=== PATIENT | female | born 1990 | race Caucasian/White ===

== ENCOUNTER 2022-03-09 08:04 | Emergency (ER) | payer BC ==
[2022-03-09 08:27] VITALS: BP 112/75
[2022-03-09] MEDS ORDERED: Zofran 4 MG/2 ML VIAL IV ONE (08:35)
[2022-03-09] MEDS ORDERED: TORAdol 30 mg Injection IV ONE (08:35)
[2022-03-09] MEDS ORDERED: Sodium Chloride 0.9% 1000 ML 1,000 ML IV STA (08:35)
--- NOTE | 2022-03-09 08:38 | ERPHSYRPT ---
- History of Present Illness Time Seen by Provider: 03/09/22 08:09 Historian: patient Exam Limitations: no limitations Patient Subjective Stated Complaint: Abdominal pain all across entire lower abdomen and into right lower back. Pain intermittent for a few months but has increased since yesterday. States no pain when sitting still but has pain when up ambulating. Triage Nursing Assessment: Patient ambulated back to ED hunched over gaurding abdomen. She is alert and oriented. No SOB. Abdomen soft. Physician History: 32 years old female with history of diabetes mellitus on Victoza presented in the ER with chief complaint of pain across the lower abdomen with some radiation to the back especially on the right side, moderate to severe sharp, aggravated with activity and better with resting. Patient report has been going on for the last couple of months but for last 2 to 3 days its been getting really unbearabl e and has associated nausea and vomited times once yesterday. Denies any urinary complaints. No fever or chills reported. Timing/Duration: week(s), intermittent, worse Activities at Onset: activity Quality: sharpness Abdominal Pain Onset Location: RLQ, LLQ, periumbilical Pain Radiation: back Severity of Pain-Max: severe Severity of Pain-Current: moderate Modifying Factors: Improves With: rest. Worsens With: movement Associated Symptoms: back, nausea, vomiting, No chest pain, No shortness of breath Allergies/Adverse Reactions: metformin [From Glucophage] Allergy (Verified 03/09/22 08:26) Home Medications: Albuterol Sulfate [Albuterol Sulfate Hfa] 2 puff PO Q4-6HPRN PRN 03/09/22 [History] Liraglutide [Victoza 2-Flakito] 1.2 mg SQ DAILY 03/09/22 [History] Hx Tetanus, Diphtheria Vaccination/Date Given: Yes Hx Influenza Vaccination/Date Given: Yes Hx Pneumococcal Vaccination/Date Given: No Immunizations Up to Date: Yes Travel Risk - International Travel Have you traveled outside of the country in past 3 weeks: No - Coronavirus Screening Are you exhibiting any of the following symptoms?: No Close contact with a COVID-19 positive Pt in past 14-21 Days: No - Vaccine Status Have you recieved a Covid-19 vaccination: Yes Heel Sander: fluid Operations - Vaccination Dates Date of 2cond Vaccination (if applicable): 2020 - Review of Systems Constitutional: No Symptoms Eyes: No Symptoms Ears, Nose, & Throat: No Symptoms Respiratory: No Symptoms Cardiac: No Symptoms Abdominal/Gastrointestinal: Abdominal Pain, Nausea, Vomiting Genitourinary Symptoms: No Symptoms Musculoskeletal: Back Pain Skin: No Symptoms Neurological: No Symptoms Psychological: No Symptoms Endocrine: No Symptoms Hematologic/Lymphatic: No Symptoms - Past Medical History Pertinent Past Medical History: Yes Neurological History: Migraines ENT History: No Pertinent History Cardiac History: No Pertinent History Respiratory History: Asthma, Sleep Apnea Endocrine Medical History: Diabetes Type II Musculoskeletal History: No Pertinent History GI Medical History: Gallbladder Disease History: Other Psycho-Social History: Anxiety, Depression Female Reproductive Disorders: No Pertinent History Other Medical History: KIDNEY STONES - Past Surgical History Past Surgical History: Yes Neuro Surgical History: No Pertinent History Cardiac: No Pertinent History Respiratory: No Pertinent History Gastrointestinal: Appendectomy, Cholecystectomy Genitourinary: Other Musculoskeletal: No Pertinent History Female Surgical History: No Pertinent History Other Surgical History: KIDNEY STONE REMOVED, Left ovary and tube removed, w isdom teeth removed - Social History Smoking Status: Never smoker Exposure to second hand smoke: Yes ([id number]) Drug Use: none Patient Lives Alone: No - Female History Hx Last Menstrual Period: Irregular Hx Now: No ( Control Implant) - Nursing Vital Signs Nursing Vital Signs: Initial Vital Signs Temperature 97.9 F 03/09/22 08:17 Pulse Rate 80 03/09/22 08:17 Respiratory Rate 18 03/09/22 08:17 Blood Pressure 112/75 03/09/22 08:17 O2 Sat by Pulse Oximetry 98 03/09/22 08:17 Pain Scale Pain Intensity 6 - Physical Exam General Appearance: no apparent distress, alert Eye Exam: PERRL/EOMI Ears, Nose, Throat Exam: normal ENT inspection, TMs normal, pharynx normal, moist mucous membranes Neck Exam: normal inspection, full range of motion Respiratory Exam: normal breath sounds, lungs clear Cardiovascular Exam: regular rate/rhythm, normal heart sounds Gastrointestinal/Abdomen Exam: soft, normal bowel sounds, tenderness (Generalized tenderness lower abdomen and periumbilical area without guarding or rebound tenderness.) Back Exam: normal inspection, normal range of motion, No CVA tenderness Extremity Exam: normal inspection, normal range of motion Neurologic Exam: alert, oriented x 3, cooperative Skin Exam: normal color SpO2 Interpretation: normal SpO2: 98 O2 Delivery: Room Air Ordered Tests: Active Orders 24 hr Category Date Time Status IV Insertion STAT Care 03/09/22 08:35 Active NPO (ED) STAT Care 03/09/22 08:35 Active ABDOMEN AND PELVIS W/0 CONTRAS [CT] Stat Exams 03/09/22 08:35 Completed CBC W DIFF Stat Lab 03/09/22 08:38 Completed CMP Stat Lab 03/09/22 08:38 Completed CULTURE,URINE Stat Lab 03/09/22 08:38 Received HCG,QUALITATIVE URINE Stat Lab 03/09/22 08:38 Completed LIPASE Stat Lab 03/09/22 08:38 Completed UA W/RFX CULTURE Stat Lab 03/09/22 08:38 Completed Medication Summary Discontinued Medications Generic Name Dose Route Start Last Admin Trade Name Ana Cristina PRN Reason Stop Dose Admin Sodium Chloride 1,000 mls @ 999 mls/hr 03/09/22 08:35 03/09/22 09:44 Sodium Chloride 0.9% 1000 Ml IV 03/09/22 09:35 Infused .Q1H1M STA Infusion Sodium Chloride Confirm 03/09/22 08:39 Sodium Chloride 0.9% 1000 Ml Administered 03/09/22 08:40 Dose 1,000 mls @ ud .ROUTE .STK-MED ONE Ketorolac Tromethamine 30 mg 03/09/22 08:35 03/09/22 08:40 Ketorolac Tromethamine 30 Mg/Ml Inj IV 03/09/22 08:36 30 mg STAT ONE Administration Ketorolac Tromethamine Confirm 03/09/22 08:39 Ketorolac Tromethamine 30 Mg/Ml Inj Administered 03/09/22 08:40 Dose 30 mg .ROUTE .STK-MED ONE Ondansetron HCl 4 mg 03/09/22 08:35 03/09/22 08:40 Ondansetron Hcl 4 Mg/2 Ml Vial IV 03/09/22 08:36 4 mg STAT ONE Administration Ondansetron HCl Confirm 03/09/22 08:39 Ondansetron Hcl 4 Mg/2 Ml Vial Administered 03/09/22 08:40 Dose 4 mg .ROUTE .STK-MED ONE Lab/Rad Data: Laboratory Result Diagrams 03/09/22 08:38 03/09/22 08:38 Laboratory Results 03/09/22 03/09/22 03/09/22 Range/Units 08:38 08:38 08:38 WBC 6.2 (4.0-10.5) x10^3/uL RBC 4.98 (4.1-5.4) x10^6/uL Hgb 14.2 (12.0-16.0) g/dL Hct 44.3 (35-47) % MCV 89.0 (78-100) fL MCH 28.5 (26-32) pg MCHC 32.1 (32-36) g/dL RDW 13.0 (11.5-14.0) % Plt Count 277 (150-450) x10^3/uL MPV 11.1 H (7.5-11.0) fL Gran % 60.7 (36.0-66.0) % Immature Gran % (Auto) 0.2 (0.00-0.4) % Nucleat RBC Rel Count 0.0 (0.00-0.1) % Eos # (Auto) 0.37 (0-0.5) x10^3/uL Immature Gran # (Auto) 0.01 (0.00-0.03) x10^3u/L Absolute Lymphs (auto) 1.30 (1.0-4.6) x10^3/uL Absolute Monos (auto) 0.66 (0.0-1.3) x10^3/uL Absolute Nucleated RBC 0.00 (0.00-0.01) x10^3u/L Lymphocytes % 21.1 L (24.0-44.0) % Monocytes % 10.7 (0.0-12.0) % Eosinophils % 6.0 H (0.00-5.0) % Basophils % 1.3 (0.0-0.4) % Absolute Granulocytes 3.73 (1.4-6.9) x10^3/uL Basophils # 0.08 (0-0.4) x10^3/uL Sodium 139 (137-145) mmol/L Potassium 4.3 (3.5-5.1) mmol/L Chloride 106 (98-107) mmol/L Carbon Dioxide 24 (22-30) mmol/L Anion Gap 13.0 (5-15) MEQ/L BUN 7 (7-17) mg/dL Creatinine 0.67 (0.52-1.04) mg/dL Estimated GFR > 60.0 ML/MIN Glucose 99 (74-106) mg/dL Calcium 9.4 (8.4-10.2) mg/dL Total Bilirubin 1.40 H (0.2-1.3) mg/dL AST 28 (14-36) U/L ALT 25 (0-35) U/L Alkaline Phosphatase 75 (38-126) U/L Serum Total Protein 7.7 (6.3-8.2) g/dL Albumin 4.8 (3.5-5.0) g/dL Lipase 107 (23-300) U/L Urinalys Dipstick Clnc MAIN LAB Urine Color YELLOW (YELLOW) Urine Appearance CLEAR (CLEAR) Urine pH 6.5 (5-6) Ur Specific Callahan 1.025 (1.005-1.025) POC Urine Protein Conf NEGATIVE (Negative) Urine Ketones NEGATIVE (NEGATIVE) Urine Nitrite NEGATIVE (NEGATIVE) Urine Bilirubin NEGATIVE (NEGATIVE) Urine Urobilinogen 0.2 (0-1) mg/dL Urine Leukocytes SMALL A (NEGATIVE) Urine WBC (Auto) 3-5 A (0-5) /HPF Urine RBC (Auto) 0-2 (0-2) /HPF U Epithel Cells (Auto) RARE (FEW) /HPF Urine Bacteria (Auto) RARE (NEGATIVE) /HPF Urine RBC NEGATIVE (0-5) Jeffery/ul Urine Mucus (Auto) SLIGHT A (NEGATIVE) /HPF Ur Culture Indicated? YES Urine Glucose NEGATIVE (NEGATIVE) mg/dL Urine HCG, Qual (Negative) 03/09/22 Range/Units 08:38 WBC (4.0-10.5) x10^3/uL RBC (4.1-5.4) x10^6/uL Hgb (12.0-16.0) g/dL Hct (35-47) % MCV (78-100) fL MCH (26-32) pg MCHC (32-36) g/dL RDW (11.5-14.0) % Plt Count (150-450) x10^3/uL MPV (7.5-11.0) fL Gran % (36.0-66.0) % Immature Gran % (Auto) (0.00-0.4) % Nucleat RBC Rel Count (0.00-0.1) % Eos # (Auto) (0-0.5) x10^3/uL Immature Gran # (Auto) (0.00-0.03) x10^3u/L Absolute Lymphs (auto) (1.0-4.6) x10^3/uL Absolute Monos (auto) (0.0-1.3) x10^3/uL Absolute Nucleated RBC (0.00-0.01) x10^3u/L Lymphocytes % (24.0-44.0) % Monocytes % (0.0-12.0) % Eosinophils % (0.00-5.0) % Basophils % (0.0-0.4) % Absolute Granulocytes (1.4-6.9) x10^3/uL Basophils # (0-0.4) x10^3/uL Sodium (137-145) mmol/L Potassium (3.5-5.1) mmol/L Chloride (98-107) mmol/L Carbon Dioxide (22-30) mmol/L Anion Gap (5-15) MEQ/L BUN (7-17) mg/dL Creatinine (0.52-1.04) mg/dL Estimated GFR ML/MIN Glucose (74-106) mg/dL Calcium (8.4-10.2) mg/dL Total Bilirubin (0.2-1.3) mg/dL AST (14-36) U/L ALT (0-35) U/L Alkaline Phosphatase (38-126) U/L Serum Total Protein (6.3-8.2) g/dL Albumin (3.5-5.0) g/dL Lipase (23-300) U/L Urinalys Dipstick Clnc Urine Color (YELLOW) Urine Appearance (CLEAR) Urine pH (5-6) Ur Specific Callahan (1.005-1.025) POC Urine Protein Conf (Negative) Urine Ketones (NEGATIVE) Urine Nitrite (NEGATIVE) Urine Bilirubin (NEGATIVE) Urine Urobilinogen (0-1) mg/dL Urine Leukocytes (NEGATIVE) Urine WBC (Auto) (0-5) /HPF Urine RBC (Auto) (0-2) /HPF U Epithel Cells (Auto) (FEW) /HPF Urine Bacteria (Auto) (NEGATIVE) /HPF Urine RBC (0-5) Jeffery/ul Urine Mucus (Auto) (NEGATIVE) /HPF Ur Culture Indicated? Urine Glucose (NEGATIVE) mg/dL Urine HCG, Qual NEGATIVE (Negative) - Progress Progress: improved Progress Note: 03/09/22 10:59 32 years old is evaluated for abdominal pain. She is given fluids and symptomatic treatment, on reevaluation feeling much better. No peritoneal signs. Has normal white count, grossly unremarkable chemistries except for a total bili of 1.4. CT abdomen pelvis without contrast grossly negative for any acute pathology in the abdomen pelvis but does have some left-sided airspace disease. Patient later on did report having some cough. I will put her on Z- Flakito and have her outpatient follow-up with her primary care. Her pain in the back could be chronic back pain exacerbation. Recommended symptomatic treatment and outpatient follow-up. Discussed signs symptoms of worsening needing return to ER which she seems understanding. Counseled pt/family regarding: lab results, diagnosis, need for follow-up, rad results - Departure Departure Disposition: Home Clinical Impression: Pneumonia, Abdominal pain Condition: Stable Critical Care Time: No Referrals: CARMEN SMITH [Primary Care Provider] - Follow Up with PCP/3 days Instructions: Pneumonia, Adult (DC), Severe Abdominal Pain, Adult (DC) Additional Instructions: Follow-up with primary care for reevaluation. Take Tylenol/ibuprofen as needed. Deep breathing exercises. Return to ER for worsening abdominal pain or if having difficulty breathing, fever chills etc. Prescriptions: Azithromycin 250 mg [Zithromax 250 MG TABLET] 250 mg PO ZPACK #6 tablet
[2022-03-09] MEDS ORDERED: Sodium Chloride 0.9% 1000 ML 1,000 ML ONE (08:39)
[2022-03-09] MEDS ORDERED: Zofran 4 MG/2 ML VIAL ONE (08:39)
[2022-03-09] MEDS ORDERED: TORAdol 30 mg Injection ONE (08:39)
[2022-03-09 08:47] LABS: Absolute Neutrophil Ct (ANC) 3.73 x10^3/uL (1.4-6.9); Basophil (Absolute #) 0.08 x10^3/uL (0-0.4); Eosinophil (Absolute #) 0.37 x10^3/uL (0-0.5); Hematocrit 44.3 % (35-47); Hemoglobin 14.2 g/dL (12.0-16.0); Lymphocytes % 21.1 % (24.0-44.0); Mean Corpuscular Hemoglobin 28.5 pg (26-32); Mean Corpuscular Hgb Concent. 32.1 g/dL (32-36); Mean Platelet Volume 11.1 fL (7.5-11.0); Monocyte (Absolute #) 0.66 x10^3/uL (0.0-1.3); Monocytes % 10.7 % (0.0-12.0); Neutrophil % 60.7 % (36.0-66.0); Platelet Count 277 x10^3/uL (150-450); Red Blood Count 4.98 x10^6/uL (4.1-5.4); White Blood Count 6.2 x10^3/uL (4.0-10.5)
[2022-03-09 08:52] LABS: Appearance CLEAR (CLEAR); Bilirubin NEGATIVE (NEGATIVE); Dipstick done @ ? MAIN LAB; Glucose NEGATIVE (NEGATIVE); Ketones NEGATIVE (NEGATIVE); Nitrite NEGATIVE (NEGATIVE); Ph 6.5 (5-6); Protein,Urine Dip NEGATIVE (Negative); RBC NEGATIVE Ery/ul (0-5); Specific Gravity 1.025 (1.005-1.025); Urobilinogen 0.2 mg/dL (0-1)
[2022-03-09 08:53] LABS: Bacteria RARE /HPF (NEGATIVE); Epithelial Cells RARE /HPF (FEW); Mucus SLIGHT /HPF (NEGATIVE); RBC 0-2 /HPF (0-2)
[2022-03-09 08:54] LABS: Urine Cultured Indicated? YES
[2022-03-09 08:57] LABS: ALBUMIN 4.8 g/dL (3.5-5.0); ALKALINE PHOSPHATASE 75 U/L (38-126); BLOOD UREA NITROGEN 7 mg/dL (7-17); CHLORIDE 106 mmol/L (98-107); Calcium 9.4 mg/dL (8.4-10.2); Carbon Dioxide 24 mmol/L (22-30); Creatinine 1 0.67 mg/dL (0.52-1.04); EST GLOMERULAR FILTRATION RATE > 60.0 ML/MIN; Glucose 99 mg/dL (74-106); LIPASE 107 U/L (23-300); Potassium 4.3 mmol/L (3.5-5.1); SGOT/AST 28 U/L (14-36); SGPT/ALT 25 U/L (0-35); SODIUM 139 mmol/L (137-145); Total Protein 7.7 g/dL (6.3-8.2)
--- NOTE | 2022-03-09 09:34 | XRAY ---
Indication: Abdomen pain, nausea, and vomiting 2 months. Multiple contiguous axial images obtained through the abdomen and pelvis without contrast. Comparison: None Lung bases demonstrates patchy posterior left lower lobe airspace disease with tiny effusion. Incidental small left base calcified granuloma. Heart not enlarged. Moderate-sized hiatal hernia with partial intrathoracic stomach. Noncontrasted stomach and bowel loops appear nonobstructed. Previous appendectomy, cholecystectomy, and left oophorectomy reported. No free fluid/air. Remaining liver, pancreas, spleen, adrenal glands, kidneys, ureters, bladder, uterus, and aorta are unremarkable for noncontrast exam. Osseous structures intact. No ventral or inguinal hernias. Impression: 1. Left lower lobe airspace disease with tiny effusion. 2. Incidental hiatal hernia with partial intrathoracic stomach and left lung base calcified granuloma. 3. Remaining CT abdomen/pelvis without contrast exam is negative.
[2022-03-09 11:01] VITALS: PULSE 83
[2022-03-09 11:02] VITALS: O2SAT 98
== END 2022-03-09 11:19 | disposition home or self-care (01) ==
LOC: ED 08:04
DX: J18.9 Pneumonia, unspecified organism (principal); R10.31 Right lower quadrant pain; R10.32 Left lower quadrant pain; R05.9 Cough, unspecified; R11.2 Nausea with vomiting, unspecified; E11.9 Type 2 diabetes mellitus without complications; Z79.85 Long-term (current) use of injectable non-insulin antidiabetic drugs; Z79.899 Other long term (current) drug therapy
CPT/HCPCS: 36000; 36415; 74176; 80053; 81015; 81025; 83690; 85025; 87086; 96374; 96375; 99284; J1885; J2405

== ENCOUNTER 2023-02-07 12:33 | Emergency (ER) | payer BC ==
--- NOTE | 2023-02-07 12:40 | ERPHSYRPT ---
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 Patient has had an appendectomy, cholecystectomy and left salpingo- oophorectomy. She had left-sided abdominal pain in February 2022 which was negative for any acute process. In July 2022, patient underwent a Marty fundoplication by Drs. Small/Anabelle robotically per her report. Patient has no known coronary artery disease. She does have history of diabetes, COPD, migraine headache, asthma, sleep apnea and anxiety/depression issues. Timing/Duration: today, sudden, worse Activities at Onset: none Quality: tightness, other (Squeezing) Abdominal Pain Onset Location: epigastric Pain Radiation: back Severity of Pain-Max: moderate Severity of Pain-Current: moderate Modifying Factors: Improves With: nothing Associated Symptoms: nausea, No chest pain, No diarrhea, No vomiting Previous symptoms: no prior history, no recent treatment Allergies/Adverse Reactions: metformin [From Glucophage] Allergy (Verified 02/07/23 13:03) Home Medications: Albuterol Sulfate [Albuterol Sulfate Hfa] 2 puff PO Q4-6HPRN PRN 03/09/22 [History] Escitalopram Oxalate [Lexapro] 10 mg PO DAILY 02/07/23 [History] Lorazepam 0.5 mg [Ativan 0.5 MG] 0.5 mg PO UD PRN 02/07/23 [History] Hx Tetanus, Diphtheria Vaccination/Date Given: Yes Hx Influenza Vaccination/Date Given: Yes Hx Pneumococcal Vaccination/Date Given: No Travel Risk - International Travel Have you traveled outside of the country in past 3 weeks: No - Coronavirus Screening Are you exhibiting any of the following symptoms?: No Close contact with a COVID-19 positive Pt in past 14-21 Days: No - Vaccine Status Have you recieved a Covid-19 vaccination: Yes Ergonomics Consultant: Soma - Vaccination Dates Date of 2cond Vaccination (if applicable): 2020 - Review of Systems Constitutional: No Symptoms Eyes: No Symptoms Ears, Nose, & Throat: No Symptoms Respiratory: No Symptoms Cardiac: No Symptoms Abdominal/Gastrointestinal: Abdominal Pain, Nausea, No Vomiting, No Diarrhea, No Constipation Genitourinary Symptoms: No Symptoms Musculoskeletal: No Symptoms Skin: No Symptoms Neurological: No Symptoms Psychological: No Symptoms Endocrine: No Symptoms Hematologic/Lymphatic: No Symptoms Immunological/Allergic: No Symptoms All Other Systems: Reviewed and Negative - Past Medical History Pertinent Past Medical History: Yes Neurological History: Migraines ENT History: No Pertinent History Cardiac History: No Pertinent History Respiratory History: Asthma, Sleep Apnea Endocrine Medical History: Diabetes Type II Musculoskeletal History: No Pertinent History GI Medical History: Gallbladder Disease History: Other Psycho-Social History: Anxiety, Depression Female Reproductive Disorders: No Pertinent History Other Medical History: KIDNEY STONES - Past Surgical History Past Surgical History: Yes Neuro Surgical History: No Pertinent History Cardiac: No Pertinent History Respiratory: No Pertinent History Gastrointestinal: Appendectomy, Cholecystectomy Genitourinary: Other Musculoskeletal: No Pertinent History Female Surgical History: No Pertinent History Other Surgical History: KIDNEY STONE REMOVED, Left ovary and tube removed, wisdom teeth removed - Social History Smoking Status: Never smoker Exposure to second hand smoke: Yes ([id number]) Drug Use: none Patient Lives Alone: No - Nursing Vital Signs Nursing Vital Signs: Initial Vital Signs Temperature 98.3 F 02/07/23 12:48 Pulse Rate 84 02/07/23 12:48 Blood Pressure 155/103 02/07/23 12:48 O2 Sat by Pulse Oximetry 100 02/07/23 12:48 Pain Scale Pain Intensity 2 - Physical Exam General Appearance: mild distress, alert, anxiety Eye Exam: PERRL/EOMI, eyes nml inspection Ears, Nose, Throat Exam: normal ENT inspection, moist mucous membranes Neck Exam: normal inspection Respiratory Exam: normal breath sounds, lungs clear, airway intact, No chest tenderness, No respiratory distress Cardiovascular Exam: regular rate/rhythm, normal heart sounds, normal peripheral pulses Gastrointestinal/Abdomen Exam: soft, normal bowel sounds, No tenderness Pelvic Exam: not done Rectal Exam: not done Back Exam: normal inspection, normal range of motion, No CVA tenderness, No vertebral tenderness Extremity Exam: normal inspection, normal range of motion, pelvis stable Neurologic Exam: alert, oriented x 3, cooperative, chemical pumper II-XII nml as tested, normal mood/affect, nml cerebellar function, nml station & gait, sensation nml Skin Exam: normal color, warm, dry Lymphatic Exam: No adenopathy SpO2 Interpretation: normal O2 Delivery: Room Air - Course Nursing assessment & vital signs reviewed: Yes EKG Interpreted by Me: RATE ([id number]), Sinus Rhythm, NORMAL AXIS, NORMAL INTERVALS, NORMAL QRS, Other (No acute ischemic changes on today's twelve-lead EKG) Ordered Tests: Active Orders 24 hr Category Date Time Status EKG-ER Only STAT Care 02/07/23 12:59 Active IV Insertion STAT Care 02/07/23 12:59 Active ABDOMEN AND PELVIS W/0 CONTRAS [CT] Stat Exams 02/07/23 13:00 Completed AMYLASE Stat Lab 02/07/23 13:15 Completed CBC W DIFF Stat Lab 02/07/23 13:15 Completed CMP Stat Lab 02/07/23 13:15 Completed CULTURE,URINE Stat Lab 02/07/23 13:06 Received D-DIMER QUANTITATIVE Stat Lab 02/07/23 13:15 Completed HCG QUALITATIVE, SERUM Stat Lab 02/07/23 13:15 Completed LIPASE Stat Lab 02/07/23 13:15 Completed TROPONIN Q4H Lab 02/07/23 13:15 Completed TROPONIN Q4H Lab 02/07/23 17:15 Ordered TROPONIN Q4H Lab 02/07/23 21:15 Ordered UA W/RFX UR CULTURE Stat Lab 02/07/23 13:06 Completed Medication Summary Generic Name Dose Route Start Last Admin Trade Name Freq PRN Reason Stop Dose Admin Sodium Chloride 1,000 mls @ 100 mls/hr 02/07/23 13:00 02/07/23 13:22 Sodium Chloride 0.9% 1000 Ml IV 03/09/23 12:59 100 mls/hr .Q10H ZULY Administration Discontinued Medications Generic Name Dose Route Start Last Admin Trade Name Freq PRN Reason Stop Dose Admin Hydromorphone HCl 1 mg 02/07/23 12:59 02/07/23 13:22 Hydromorphone 1 Mg/1ml Inj IV 02/07/23 13:00 1 mg STAT ONE Administration Hydromorphone HCl Confirm 02/07/23 13:21 Hydromorphone 1 Mg/1ml Inj Administered 02/07/23 13:22 Dose 1 mg .ROUTE .STK-MED ONE Ceftriaxone Sodium/Dextrose 1 g in 50 mls @ 100 mls/hr 02/07/23 14:01 03/22 14:56 Rocephin 1 Gm-D5w 50 Ml Bag IV 02/07/23 14:30 Infused STAT STA Infusion Ceftriaxone Sodium/Dextrose Confirm 02/07/23 14:05 Rocephin 1 Gm-D5w 50 Ml Bag Administered 02/07/23 14:06 Dose 1 g in 50 mls @ ud IV .STK-MED ONE Ondansetron HCl 4 mg 02/07/23 12:59 02/07/23 13:22 Ondansetron Hcl 4 Mg/2 Ml Vial IV 02/07/23 13:00 4 mg STAT ONE Administration Ondansetron HCl Confirm 02/07/23 13:21 Ondansetron Hcl 4 Mg/2 Ml Vial Administered 02/07/23 13:22 Dose 4 mg .ROUTE .STK-MED ONE Lab/Rad Data: Laboratory Result Diagrams 02/07/23 13:15 02/07/23 13:15 Laboratory Results 02/07/23 02/07/23 02/07/23 Range/Units 13:15 13:15 13:15 WBC (4.0-10.5) x10^3/uL RBC (4.1-5.4) x10^6/uL Hgb (12.0-16.0) g/dL Hct (35-47) % MCV (78-100) fL MCH (26-32) pg MCHC (32-36) g/dL RDW (11.5-14.0) % Plt Count (150-450) x10^3/uL MPV (7.5-11.0) fL Gran % (36.0-66.0) % Immature Gran % (Auto) (0.00-0.4) % Nucleat RBC Rel Count (0.00-0.1) % Eos # (Auto) (0-0.5) x10^3/uL Immature Gran # (Auto) (0.00-0.03) x10^3u/L Absolute Lymphs (auto) (1.0-4.6) x10^3/uL Absolute Monos (auto) (0.0-1.3) x10^3/uL Absolute Nucleated RBC (0.00-0.01) x10^3u/L Lymphocytes % (24.0-44.0) % Monocytes % (0.0-12.0) % Eosinophils % (0.00-5.0) % Basophils % (0.0-0.4) % Absolute Granulocytes (1.4-6.9) x10^3/uL Basophils # (0-0.4) x10^3/uL D-Dimer 0.52 H (0.0-0.50) mg/L Sodium (137-145) mmol/L Potassium (3.5-5.1) mmol/L Chloride (98-107) mmol/L Carbon Dioxide (22-30) mmol/L Anion Gap (5-15) MEQ/L BUN (7-17) mg/dL Creatinine (0.52-1.04) mg/dL Estimated GFR ML/MIN Glucose (74-106) mg/dL Calcium (8.4-10.2) mg/dL Total Bilirubin (0.2-1.3) mg/dL AST (14-36) U/L ALT (0-35) U/L Alkaline Phosphatase (38-126) U/L Troponin I < 0.012 (0.000-0.034) ng/mL Serum Total Protein (6.3-8.2) g/dL Albumin (3.5-5.0) g/dL Amylase (30-110) U/L Lipase (23-300) U/L Serum HCG, Qual NEGATIVE (NEGATIVE) Urine Color (Yellow) Urine Appearance (Clear) Urine pH (4.6-8.0) Ur Specific [place] (1.005-1.030) Urine Protein (Negative) Urine Glucose (UA) (Negative) mg/dL Urine Ketones (Negative) Urine Blood (Negative) Urine Nitrite (Negative) Urine Bilirubin (Negative) Urine Urobilinogen (0.2) mg/dL Ur Leukocyte Esterase (Negative) U Hyaline Cast (Auto) (0-2) /LPF Urine Microscopic RBC (0-5) /HPF Urine Microscopic WBC (0-5) /HPF Ur Epithelial Cells (None Seen) /HPF Urine Bacteria (None Seen) /HPF Urine Culture Reflexed (NO) 02/07/23 02/07/23 02/07/23 Range/Units 13:15 13:15 13:06 WBC 10.4 (4.0-10.5) x10^3/uL RBC 4.47 (4.1-5.4) x10^6/uL Hgb 13.2 (12.0-16.0) g/dL Hct 40.1 (35-47) % MCV 89.7 (78-100) fL MCH 29.5 (26-32) pg MCHC 32.9 (32-36) g/dL RDW 13.4 (11.5-14.0) % Plt Count 224 (150-450) x10^3/uL MPV 10.5 (7.5-11.0) fL Gran % 61.6 (36.0-66.0) % Immature Gran % (Auto) 0.4 (0.00-0.4) % Nucleat RBC Rel Count 0.0 (0.00-0.1) % Eos # (Auto) 0.08 (0-0.5) x10^3/uL Immature Gran # (Auto) 0.04 H (0.00-0.03) x10^3u/L Absolute Lymphs (auto) 3.19 (1.0-4.6) x10^3/uL Absolute Monos (auto) 0.64 (0.0-1.3) x10^3/uL Absolute Nucleated RBC 0.00 (0.00-0.01) x10^3u/L Lymphocytes % 30.6 (24.0-44.0) % Monocytes % 6.1 (0.0-12.0) % Eosinophils % 0.8 (0.00-5.0) % Basophils % 0.5 (0.0-0.4) % Absolute Granulocytes 6.44 (1.4-6.9) x10^3/uL Basophils # 0.05 (0-0.4) x10^3/uL D-Dimer (0.0-0.50) mg/L Sodium 140 (137-145) mmol/L Potassium 3.6 (3.5-5.1) mmol/L Chloride 106 (98-107) mmol/L Carbon Dioxide 23 (22-30) mmol/L Anion Gap 14.9 (5-15) MEQ/L BUN 13 (7-17) mg/dL Creatinine 0.61 (0.52-1.04) mg/dL Estimated GFR > 60.0 ML/MIN Glucose 91 (74-106) mg/dL Calcium 9.1 (8.4-10.2) mg/dL Total Bilirubin 0.60 (0.2-1.3) mg/dL AST 30 (14-36) U/L ALT 27 (0-35) U/L Alkaline Phosphatase 76 (38-126) U/L Troponin I (0.000-0.034) ng/mL Serum Total Protein 7.0 (6.3-8.2) g/dL Albumin 4.4 (3.5-5.0) g/dL Amylase 60 (30-110) U/L Lipase 106 (23-300) U/L Serum HCG, Qual (NEGATIVE) Urine Color Yellow (Yellow) Urine Appearance Cloudy A (Clear) Urine pH 6.5 (4.6-8.0) Ur Specific [place] 1.020 (1.005-1.030) Urine Protein Negative (Negative) Urine Glucose (UA) Negative (Negative) mg/dL Urine Ketones Negative (Negative) Urine Blood Negative (Negative) Urine Nitrite Negative (Negative) Urine Bilirubin Negative (Negative) Urine Urobilinogen 0.2 (0.2) mg/dL Ur Leukocyte Esterase Moderate A (Negative) U Hyaline Cast (Auto) NONE SEEN (0-2) /LPF Urine Microscopic RBC 0-2 (0-5) /HPF Urine Microscopic WBC 6-10 A (0-5) /HPF Ur Epithelial Cells Moderate A (None Seen) /HPF Urine Bacteria Moderate A (None Seen) /HPF Urine Culture Reflexed YES (NO) - Progress Progress: improved, pain not gone completely, re-examined Progress Note: 02/07/23 13:27 This patient's medical issue is 1 of at least moderate complexity. Level compl ex in the work-up performed is based on review of the patient's past medical history, review of the patient's medication list, review of the patient's drug allergy list, history of present is some physical findings on examination. The work-up includes placement of intravenous line, infusion of normal saline solution, infusion of 4 mg intravenous Zofran, infusion of Dilaudid 1 mg intravenously, CBC, CMP, amylase, urinalysis, test, D-dimer, troponin level and twelve-lead EKG. 02/07/23 14:46 I reviewed and interpreted the patient's laboratory data results. Patient does have a significant urinary tract infection. She has a borderline normal D-dimer level. She has no clotting or bleeding disorders. She is active. She has no calf pain or swelling in her bilateral lower extremities. I will discuss with her the results of the laboratory data and discussed with her CT scan of the chest with contrast, its risk benefits and alternatives. I am not convinced that she absolutely has to have this study done but I will give her the option. The CT scan of the abdomen pelvis without contrast shows a 3.5 cm right ovarian cyst and bilateral punctate calculi that are nonobstructing. 02/07/23 14:47 02/07/23 15:34 I reviewed the work-up results including labs and x-ray findings with the patient. The patient is awake alert oriented. She is declining the CT scan of the chest with contrast at this time. She will sign a refusal of test form Counseled pt/family regarding: lab results, diagnosis, rad results Medical Desision Making - Diagnostic Testing Diagnostic test were ordered, analyzed, and reviewed by me: Yes Radiological Interpretation: Reviewed by me, Teleradiologist Report - Risk of complications The pt has a mod risk of morbidity or mortality based on: Need for prescription drug management - Departure Departure Disposition: Home Clinical Impression: Epigastric pain Condition: Stable Critical Care Time: No Referrals: CARMEN SMITH [Primary Care Provider] - Follow up/PCP as directed Additional Instructions: Avoid fatty greasy spicy foods. Avoid carbonated beverages. Drink plenty of clear liquids. Call your surgeon tomorrow, 02/08/2023, and let them know you are here in the emergency department and the symptoms you are having. Follow-up with them in the next 3 to 5 days. Take your other medications as prescribed
[2023-02-07 13:03] VITALS: PULSE 84; TEMP 98.3
[2023-02-07] MEDS ORDERED: Zofran 4 MG/2 ML VIAL ONE (13:21)
[2023-02-07] MEDS ORDERED: Hydromorphone 1 mg/ml Injection ONE (13:21)
[2023-02-07] MEDS ORDERED: Sodium Chloride 0.9% 1000 ML 1,000 ML ONE (13:21)
[2023-02-07] MEDS: Hydromorphone 1 mg/ml Injection IV ONE (13:22)
[2023-02-07] MEDS: Sodium Chloride 0.9% 1000 ML 1,000 ML IV SCH (13:22)
[2023-02-07] MEDS: Zofran 4 MG/2 ML VIAL IV ONE (13:22)
[2023-02-07 13:28] LABS: Absolute Neutrophil Ct (ANC) 6.44 x10^3/uL (1.4-6.9); BASOPHIL % 0.5 % (0.0-0.4); Basophil (Absolute #) 0.05 x10^3/uL (0-0.4); Eosinophil % 0.8 % (0.00-5.0); Eosinophil (Absolute #) 0.08 x10^3/uL (0-0.5); Hematocrit 40.1 % (35-47); Hemoglobin 13.2 g/dL (12.0-16.0); IMMATURE GRAN # 0.04 x10^3u/L (0.00-0.03); IMMATURE GRAN % 0.4 % (0.00-0.4); Lymphocyte (Absolute #) 3.19 x10^3/uL (1.0-4.6); Lymphocytes % 30.6 % (24.0-44.0); Mean Cell Volume 89.7 fL (78-100); Mean Corpuscular Hemoglobin 29.5 pg (26-32); Mean Corpuscular Hgb Concent. 32.9 g/dL (32-36); Mean Platelet Volume 10.5 fL (7.5-11.0); Monocyte (Absolute #) 0.64 x10^3/uL (0.0-1.3); Monocytes % 6.1 % (0.0-12.0); Neutrophil % 61.6 % (36.0-66.0); Platelet Count 224 x10^3/uL (150-450); Red Blood Count 4.47 x10^6/uL (4.1-5.4); Red Cell Distribution Width 13.4 % (11.5-14.0); White Blood Count 10.4 x10^3/uL (4.0-10.5)
[2023-02-07 13:32] LABS: Appearance Cloudy (Clear); Bilirubin Negative (Negative); Blood Negative (Negative); Glucose, Urine Negative (Negative); Ketones Negative (Negative); Leukocyte Esterase Moderate (Negative); Nitrite Negative (Negative); Ph 6.5 (4.6-8.0); Protein,Urine Dip Negative (Negative); Urobilinogen 0.2 mg/dL (0.2)
[2023-02-07 13:57] LABS: Hyaline Casts NONE SEEN /LPF (0-2); RBC 0-2 /HPF (0-5)
[2023-02-07 13:58] LABS: ADD URINE CULTURE? YES (NO); Bacteria Moderate /HPF (None Seen); Epithelial Cells Moderate /HPF (None Seen)
[2023-02-07] MEDS ORDERED: ROCEPHIN 1 Gm-D5w 50 ml Bag** 1 G/50 ML IVPB IV ONE (14:05)
[2023-02-07] MEDS: ROCEPHIN 1 Gm-D5w 50 ml Bag** 1 G/50 ML IVPB IV STA (14:06)
[2023-02-07 14:11] LABS: HCG SERUM TEST NEGATIVE (NEGATIVE)
[2023-02-07 14:15] LABS: ALBUMIN 4.4 g/dL (3.5-5.0); ALKALINE PHOSPHATASE 76 U/L (38-126); AMYLASE 60 U/L (30-110); ANION GAP 14.9 MEQ/L (5-15); BLOOD UREA NITROGEN 13 mg/dL (7-17); CHLORIDE 106 mmol/L (98-107); Calcium 9.1 mg/dL (8.4-10.2); Carbon Dioxide 23 mmol/L (22-30); Creatinine 1 0.61 mg/dL (0.52-1.04); EST GLOMERULAR FILTRATION RATE > 60.0 ML/MIN; Glucose 91 mg/dL (74-106); LIPASE 106 U/L (23-300); Potassium 3.6 mmol/L (3.5-5.1); SGOT/AST 30 U/L (14-36); SGPT/ALT 27 U/L (0-35); SODIUM 140 mmol/L (137-145)
--- NOTE | 2023-02-07 14:39 | XRAY ---
Indication: Epigastric pain. Status post Marty fundoplication July 2022. Multiple contiguous axial images obtained through the abdomen and pelvis without contrast. Comparison: March 09, 2022 Lung bases demonstrates minimal dependent atelectasis. Stable tiny left lower lobe calcified granuloma. No infiltrate or effusion. Heart not enlarged. Noncontrasted stomach and bowel loops nonobstructed. Right hemicolon demonstrates intraluminal radiopacities either ingested medication/bismuth versus barium. Again appendectomy, cholecystotomy, and left oophorectomy. New nonobstructing renal punctate calculus in each kidney. New 3.5 cm right ovary cyst. No free fluid/air. Remaining liver, pancreas, spleen, adrenal glands, kidneys, ureters, bladder, uterus, and aorta are unremarkable for noncontrast exam. Osseous structures intact. Impression: 1. New nonobstructing punctate calculus bilaterally and 3.5 cm right ovary cyst. 2. Remaining CT abdomen/pelvis without contrast exam is negative.
[2023-02-07 15:35] VITALS: BP 121/70; RESP 18; O2SAT 99
== END 2023-02-07 15:56 | disposition home or self-care (01) ==
LOC: ED 12:33
DX: R10.13 Epigastric pain (principal); E11.9 Type 2 diabetes mellitus without complications; Z79.899 Other long term (current) drug therapy
CPT/HCPCS: 36415; 74176; 80053; 81001; 82150; 83690; 84484; 84703; 85025; 85379; 87086; 93005; 96360; 96361; 96365; 96374; 96375; 99284; J0696; J1170; J2405